=== PATIENT | male | born 1945 | race Caucasian/White ===

== ENCOUNTER 2021-07-03 23:35 | Inpatient (IN) ==
[2021-07-04] MEDS ORDERED: SODIUM CHLORIDE 0.9% 1,000 ML IV STA (00:17)
[2021-07-04 01:03] LABS: Basophils % 0.5 % (0.0-0.8); Eosinophils # 0.4 10*3/uL (0.0-0.87); Hemoglobin 12.7 GM/DL (14.0-18.0); Immature Granulocytes % 0.5 %; Immature Granulocytes Absolute 0.03 #; Lymphocytes # 1.1 10*3/uL (1.4-4.0); Lymphocytes % 17.4 % (21.2-54.2); Mean Corpuscular HGB Conc 31.8 GM/DL (32-36); Mean Platelet Volume 10.9 FL (9.6-12.0); Monocytes % 15.2 % (1.7-12.7); Neutrophils % 60.4 % (38.7-73.9); Platelet Count 178 T/CUMM (130-400); Red Blood Count 4.08 MC/CUMM (3.8-5.5); Red Cell Distribution Width 13.9 % (9.3-17.3); White Blood Count 6.3 T/CUMM (4-12)
[2021-07-04 01:19] LABS: PT Patient Result 10.9 SECS (10.5-12.0); Partial Thromboplastin Time 28.2 SECS (23.8-32.1)
[2021-07-04] MEDS ORDERED: ALBUTEROL/IPRATROPIUM 3 ML NEB RESP TX ONE (01:20)
[2021-07-04] MEDS ORDERED: LEVOFLOXACIN INJ 500 MG/100 ML PREMIX IV STA (01:20)
[2021-07-04] MEDS ORDERED: methylPREDNISolone SOD SUC 125 MG/2 ML VIAL IV STA (01:20)
[2021-07-04 01:23] LABS: Albumin 2.5 G/DL (3.4-5.0); Bilirubin,Total 0.7 MG/DL (0.20-1.00); Calcium 8.8 MG/DL (8.5-10.1); Osmolality,Calculated 283.5 MOS/KG (273-304); Potassium 4.6 MMOL/L (3.5-5.1); Total Protein 5.7 G/DL (6.4-8.2)
[2021-07-04] MEDS ORDERED: MAGNESIUM SULF RIDER 1 GM/100 ML PREMIX IV STA (01:32)
[2021-07-04] MEDS ORDERED: DEXTROSE 50% 25 GM/50 ML VIAL IV PRN (01:55)
[2021-07-04] MEDS ORDERED: ALBUTEROL 2.5 MG/3 ML NEB RESP TX PRN (01:55)
[2021-07-04] MEDS ORDERED: hydrALAZINE 20 MG/1 ML VIAL IV PRN (01:55)
[2021-07-04] MEDS ORDERED: DEXTROSE 10% 250 ML BAG IV PRN (01:55)
[2021-07-04] MEDS ORDERED: GLUCAGON 1 MG VIAL IM PRN (01:55)
[2021-07-04] MEDS ORDERED: guaiFENesin/DM ER 600-30 MG TABLET PO PRN (01:55)
[2021-07-04] MEDS ORDERED: ONDANSETRON 4 MG/2 ML VIAL IV PRN (01:55)
[2021-07-04 02:16] LABS: ABG Base Excess 4.1 MMOL/L (-2.5-2.5); ABG Oxygen Saturation 97.2 % (95-100); ABG PH 7.275 (7.35-7.45); ABG TCO2 30.1 MMOL/L (23-27)
[2021-07-04 02:18] LABS: ABG PCO2 72.5 MM HG (35-48)
[2021-07-04] MEDS ORDERED: MAGNESIUM SULF RIDER 2 GM/50 ML PREMIX IV PRN (02:28)
[2021-07-04] MEDS ORDERED: MAGNESIUM SULF RIDER 4 GM/100 ML PREMIX IV PRN (02:28)
[2021-07-04] MEDS: SODIUM CHLORIDE 0.9% 1,000 ML IV SCH ×3 (03:09→21:13)
[2021-07-04 04:03] LABS: Basophils % 0.4 % (0.0-0.8); Eosinophils # 0.2 10*3/uL (0.0-0.87); Eosinophils % 3.8 % (0.00-10.9); Hematocrit 38.8 VOL% (42.0-52.0); Immature Granulocytes % 0.6 %; Immature Granulocytes Absolute 0.03 #; Lymphocytes # 0.6 10*3/uL (1.4-4.0); Lymphocytes % 11.5 % (21.2-54.2); Mean Corpuscular HGB Conc 30.9 GM/DL (32-36); Mean Corpuscular Volume 98.2 FL (87-102); Monocytes % 9.5 % (1.7-12.7); Neutrophils % 74.2 % (38.7-73.9); Platelet Count 185 T/CUMM (130-400); Red Blood Count 3.95 MC/CUMM (3.8-5.5); Red Cell Distribution Width 13.8 % (9.3-17.3); White Blood Count 4.9 T/CUMM (4-12)
[2021-07-04 04:39] LABS: VLDL Cholesterol 19.2 MG/DL
[2021-07-04] MEDS: ALBUTEROL/IPRATROPIUM 3 ML NEB RESP TX SCH ×3 (07:11→19:03)
[2021-07-04] MEDS: INSULIN LISPRO 100 UNIT/ML SUBCUT SCH ×4 (07:22→21:12)
[2021-07-04] MEDS: DOCUSATE SODIUM 100 MG CAPSULE PO SCH ×2 (09:02→21:17)
[2021-07-04] MEDS: ENOXAPARIN 40 MG/0.4 ML SYRINGE SUBCUT SCH (09:02)
[2021-07-04] MEDS: NICOTINE 21 MG/24 HR PATCH TRANSDERM SCH (09:03)
[2021-07-04] MEDS: PANTOPRAZOLE 40 MG TABLET PO SCH (09:03)
[2021-07-04] MEDS: methylPREDNISolone SOD SUC 40 MG/1 ML VIAL IV SCH ×2 (09:03→17:30)
[2021-07-04] MEDS: BUDESONIDE/FORMOTEROL 160-4.5 INHALER 6 GM INH SCH (09:03)
[2021-07-05] MEDS: ALBUTEROL/IPRATROPIUM 3 ML NEB RESP TX SCH ×4 (01:49→19:05)
[2021-07-05] MEDS: methylPREDNISolone SOD SUC 40 MG/1 ML VIAL IV SCH ×3 (02:18→17:25)
[2021-07-05 05:33] LABS: Basophils % 0.1 % (0.0-0.8); Hematocrit 37.2 VOL% (42.0-52.0); Hemoglobin 12.1 GM/DL (14.0-18.0); Immature Granulocytes % 0.6 %; Immature Granulocytes Absolute 0.05 #; Lymphocytes # 0.4 10*3/uL (1.4-4.0); Lymphocytes % 4.8 % (21.2-54.2); Mean Corpuscular HGB Conc 32.5 GM/DL (32-36); Mean Corpuscular Volume 95.4 FL (87-102); Mean Platelet Volume 11.2 FL (9.6-12.0); Monocytes % 5.5 % (1.7-12.7); Platelet Count 192 T/CUMM (130-400); Red Cell Distribution Width 13.4 % (9.3-17.3); White Blood Count 8.4 T/CUMM (4-12)
[2021-07-05] MEDS: SODIUM CHLORIDE 0.9% 1,000 ML IV SCH ×2 (05:47→17:25)
[2021-07-05 05:58] LABS: Calcium 9.1 MG/DL (8.5-10.1); Osmolality,Calculated 288.4 MOS/KG (273-304); Potassium 5.2 MMOL/L (3.5-5.1)
[2021-07-05 06:15] LABS: Lymphocytes 3 % (20-55); Platelet Estimate Normal; Segmented Neutrophils 92 % (50-85); Total Cells Counted 100
[2021-07-05] MEDS: BUDESONIDE/FORMOTEROL 160-4.5 INHALER 6 GM INH SCH ×3 (06:27→22:30)
[2021-07-05] MEDS ORDERED: SODIUM POLYSTYRENE SULFATE 15 GM/60 ML BOTTLE PO ONE (09:00)
[2021-07-05] MEDS: ENOXAPARIN 40 MG/0.4 ML SYRINGE SUBCUT SCH (09:29)
[2021-07-05] MEDS: DOCUSATE SODIUM 100 MG CAPSULE PO SCH ×2 (09:29→22:17)
[2021-07-05] MEDS: FUROSEMIDE 40 MG TABLET PO SCH (09:29)
[2021-07-05] MEDS: LEVOFLOXACIN INJ 500 MG/100 ML PREMIX IV SCH (09:29)
[2021-07-05] MEDS: allopurinoL 300 MG TABLET PO SCH (09:29)
[2021-07-05] MEDS: NICOTINE 21 MG/24 HR PATCH TRANSDERM SCH (09:29)
[2021-07-05] MEDS: glipiZIDE 5 MG TABLET PO SCH (09:29)
[2021-07-05] MEDS: PANTOPRAZOLE 40 MG TABLET PO SCH (09:29)
[2021-07-05] MEDS: INSULIN LISPRO 100 UNIT/ML SUBCUT SCH ×4 (09:29→22:17)
[2021-07-05] MEDS: GABAPENTIN 400 MG CAPSULE PO SCH ×3 (12:15→22:17)
[2021-07-06] MEDS: ALBUTEROL/IPRATROPIUM 3 ML NEB RESP TX SCH ×2 (01:06→07:12)
[2021-07-06] MEDS: SODIUM CHLORIDE 0.9% 1,000 ML IV SCH ×3 (01:56→09:35)
[2021-07-06] MEDS: methylPREDNISolone SOD SUC 40 MG/1 ML VIAL IV SCH ×2 (02:43→09:35)
[2021-07-06 06:28] LABS: Basophils % 0.2 % (0.0-0.8); Hematocrit 39.3 VOL% (42.0-52.0); Immature Granulocytes % 1.5 %; Immature Granulocytes Absolute 0.15 #; Lymphocytes # 0.4 10*3/uL (1.4-4.0); Lymphocytes % 4.1 % (21.2-54.2); Mean Corpuscular HGB Conc 30.5 GM/DL (32-36); Mean Corpuscular Volume 99.5 FL (87-102); Mean Platelet Volume 10.8 FL (9.6-12.0); Monocytes % 9.9 % (1.7-12.7); Neutrophils % 84.3 % (38.7-73.9); Platelet Count 210 T/CUMM (130-400); Red Blood Count 3.95 MC/CUMM (3.8-5.5); Red Cell Distribution Width 14.2 % (9.3-17.3); White Blood Count 9.8 T/CUMM (4-12)
[2021-07-06 06:41] LABS: Calcium 8.7 MG/DL (8.5-10.1); Osmolality,Calculated 294.7 MOS/KG (273-304); Potassium 3.7 MMOL/L (3.5-5.1)
[2021-07-06 07:35] LABS: Hypochromia 1+; Lymphocytes 4 % (20-55); Segmented Neutrophils 87 % (50-85); Total Cells Counted 100
[2021-07-06 07:36] LABS: Microcytosis 1+; Platelet Estimate Normal
[2021-07-06] MEDS: DOCUSATE SODIUM 100 MG CAPSULE PO SCH (09:35)
[2021-07-06] MEDS: PANTOPRAZOLE 40 MG TABLET PO SCH (09:35)
[2021-07-06] MEDS: glipiZIDE 5 MG TABLET PO SCH (09:35)
[2021-07-06] MEDS: LEVOFLOXACIN INJ 500 MG/100 ML PREMIX IV SCH (09:35)
[2021-07-06] MEDS: NICOTINE 21 MG/24 HR PATCH TRANSDERM SCH (09:35)
[2021-07-06] MEDS: BUDESONIDE/FORMOTEROL 160-4.5 INHALER 6 GM INH SCH (09:35)
[2021-07-06] MEDS: INSULIN LISPRO 100 UNIT/ML SUBCUT SCH ×2 (09:35→12:20)
[2021-07-06] MEDS: allopurinoL 300 MG TABLET PO SCH (09:35)
[2021-07-06] MEDS: ENOXAPARIN 40 MG/0.4 ML SYRINGE SUBCUT SCH (09:35)
[2021-07-06] MEDS: GABAPENTIN 400 MG CAPSULE PO SCH (09:35)
[2021-07-06] MEDS: FUROSEMIDE 40 MG TABLET PO SCH (09:35)
[2021-07-06 11:38] VITALS: BP 140/70
== END 2021-07-06 14:18 | disposition home or self-care (01) | DRG 190 ==
LOC: N.ED 23:35 → N.EDINP 07-04 02:04 → N.5E 07-04 14:09
PROVIDERS: ADMIT Hospitalist; ATTEND Hospitalist

== ENCOUNTER 2021-09-13 08:47 | Inpatient (IN) ==
[2021-09-13] MEDS ORDERED: methylPREDNISolone SOD SUC 125 MG/2 ML VIAL IV STA (09:15)
[2021-09-13] MEDS ORDERED: ASPIRIN 325 MG TABLET PO STA (09:15)
[2021-09-13] MEDS ORDERED: SODIUM CHLORIDE 0.9% 500 ML IV STA ×2 (09:28→10:21)
[2021-09-13 09:29] LABS: Basophils # 0.1 10*3/uL (0.0-0.2); Basophils % 0.9 % (0.0-0.8); Eosinophils # 0.1 10*3/uL (0.0-0.87); Hematocrit 47.4 VOL% (42.0-52.0); Hemoglobin 13.8 GM/DL (14.0-18.0); Immature Granulocytes % 0.4 %; Immature Granulocytes Absolute 0.04 #; Lymphocytes # 0.8 10*3/uL (1.4-4.0); Lymphocytes % 8.5 % (21.2-54.2); Mean Corpuscular HGB Conc 29.1 GM/DL (32-36); Mean Corpuscular Volume 104.2 FL (87-102); Mean Platelet Volume 11.1 FL (9.6-12.0); Monocytes # 0.7 10*3/uL (0.11-0.8); Monocytes % 7.8 % (1.7-12.7); Neutrophils % 81.4 % (38.7-73.9); Platelet Count 242 T/CUMM (130-400); Red Blood Count 4.55 MC/CUMM (3.8-5.5); Red Cell Distribution Width 15.1 % (9.3-17.3); White Blood Count 9.1 T/CUMM (4-12)
[2021-09-13] MEDS ORDERED: ALBUTEROL NEB SOLN 5 MG/ML 20 ML/BOTTLE CONT NEB SCH (09:30)
[2021-09-13 09:46] LABS: Arterial Base Excess iSTAT 0 MMOL/L (-2.5-2.5); Arterial Bicarbonate iSTAT 30.1 MMOL/L (20-26); Arterial O2 Saturation iSTAT 93 % (95-100); Arterial PCO2 iSTAT 75 MM HG (35-48); Arterial PO2 iSTAT 82 MM HG (80-95); Arterial Total CO2 iSTAT 32 MMO/L (23-27); Arterial pH iSTAT 7.212 (7.35-7.45)
[2021-09-13 09:52] LABS: Albumin 3.3 G/DL (3.4-5.0); Bilirubin,Total 0.8 MG/DL (0.20-1.00); Calcium 8.6 MG/DL (8.5-10.1); Osmolality,Calculated 293.1 MOS/KG (273-304); Potassium 5.8 MMOL/L (3.5-5.1); Total Protein 6.4 G/DL (6.4-8.2)
[2021-09-13] MEDS ORDERED: AZITHROMYCIN INJ 500 MG in SODIUM CHLORIDE 0.9% 250 ML IV STA (10:16)
[2021-09-13] MEDS ORDERED: cefTRIAXone 1,000 MG in SODIUM CHLORIDE 0.9% 100 ML IV STA (10:16)
[2021-09-13] MEDS ORDERED: GLUCAGON 1 MG VIAL IM PRN (10:53)
[2021-09-13] MEDS ORDERED: DEXTROSE 10% 250 ML BAG IV PRN (11:03)
[2021-09-13] MEDS ORDERED: DIAZEPAM 5 MG TABLET PO STA (11:04)
[2021-09-13] MEDS ORDERED: ONDANSETRON ODT 4 MG TABLET PO PRN (11:22)
[2021-09-13] MEDS ORDERED: AZITHROMYCIN INJ 500 MG in SODIUM CHLORIDE 0.9% 250 ML IV SCH (11:30)
[2021-09-13] MEDS ORDERED: oxyCODONE/ACETAMINOPHEN 5-325 MG TABLET PO PRN (11:36)
[2021-09-13] MEDS: ENOXAPARIN 40 MG/0.4 ML SYRINGE SUBCUT SCH (11:57)
[2021-09-13] MEDS: ALBUTEROL/IPRATROPIUM 3 ML NEB RESP TX SCH ×2 (12:50→19:26)
[2021-09-13 13:14] LABS: Arterial Base Excess iSTAT -2 MMOL/L (-2.5-2.5); Arterial Bicarbonate iSTAT 27.3 MMOL/L (20-26); Arterial O2 Saturation iSTAT 76 % (95-100); Arterial PCO2 iSTAT 67 MM HG (35-48); Arterial PO2 iSTAT 51 MM HG (80-95); Arterial Total CO2 iSTAT 29 MMO/L (23-27); Arterial pH iSTAT 7.216 (7.35-7.45)
[2021-09-13] MEDS ORDERED: GABAPENTIN 400 MG CAPSULE PO SCH (15:00)
[2021-09-13] MEDS ORDERED: MORPHINE 2 MG/1 ML SYRINGE ONE (15:15)
[2021-09-13] MEDS ORDERED: DIGOXIN 0.5 MG/2 ML AMP IV ONE ×2 (15:19→16:00)
[2021-09-13] MEDS ORDERED: DILTIAZEM 50 MG/10 ML VIAL IV ONE (15:29)
[2021-09-13 15:48] LABS: Basophils % 0.4 % (0.0-0.8); Hematocrit 48.8 VOL% (42.0-52.0); Hemoglobin 14.7 GM/DL (14.0-18.0); Immature Granulocytes % 0.8 %; Immature Granulocytes Absolute 0.07 #; Lymphocytes # 0.4 10*3/uL (1.4-4.0); Lymphocytes % 3.8 % (21.2-54.2); Mean Corpuscular HGB Conc 30.1 GM/DL (32-36); Mean Corpuscular Volume 102.5 FL (87-102); Mean Platelet Volume 11.3 FL (9.6-12.0); Monocytes # 0.1 10*3/uL (0.11-0.8); Monocytes % 1.1 % (1.7-12.7); Neutrophils % 93.9 % (38.7-73.9); Platelet Count 205 T/CUMM (130-400); Red Blood Count 4.76 MC/CUMM (3.8-5.5); Red Cell Distribution Width 15.1 % (9.3-17.3); White Blood Count 9.2 T/CUMM (4-12)
[2021-09-13 15:49] LABS: Albumin 3.2 G/DL (3.4-5.0); Bilirubin,Total 0.6 MG/DL (0.20-1.00); Calcium 8.6 MG/DL (8.5-10.1); Osmolality,Calculated 279.1 MOS/KG (273-304); Total Protein 7.1 G/DL (6.4-8.2)
[2021-09-13 15:55] LABS: Potassium 6.2 MMOL/L (3.5-5.1)
[2021-09-13] MEDS ORDERED: DILTIAZEM INJ 100 MG in SODIUM CHLORIDE 0.9% 100 ML IV SCH (15:56)
[2021-09-13] MEDS ORDERED: SODIUM POLYSTYRENE SULFATE 15 GM/60 ML BOTTLE PO ONE (15:56)
[2021-09-13] MEDS ORDERED: FUROSEMIDE 40 MG TABLET PO SCH (16:00)
[2021-09-13] MEDS ORDERED: MORPHINE 2 MG/1 ML SYRINGE IV ONE ×2 (16:00→16:30)
[2021-09-13] MEDS: DILTIAZEM INJ 100 MG in SODIUM CHLORIDE 0.9% 100 ML IV SCH (16:14)
[2021-09-13 16:16] LABS: Anisocytosis Slight; Hypochromia Slight; Lymphocytes 1 % (20-55); Macrocytosis Slight; Platelet Estimate Normal; Polychromasia Slight; Target Cells Slight; Total Cells Counted 100
[2021-09-13] MEDS ORDERED: SODIUM CHLORIDE 0.9% 500 ML IV ONE ×2 (16:16→17:00)
[2021-09-13 16:17] LABS: Dohle Bodies 1+; Toxic Granulation 1+
[2021-09-13 16:52] LABS: Arterial Base Excess iSTAT -4 MMOL/L (-2.5-2.5); Arterial O2 Saturation iSTAT 97 % (95-100); Arterial PCO2 iSTAT 79 MM HG (35-48); Arterial PO2 iSTAT 128 MM HG (80-95); Arterial Total CO2 iSTAT 29 MMO/L (23-27); Arterial pH iSTAT 7.142 (7.35-7.45)
[2021-09-13] MEDS: NICOTINE 14 MG/24 HR PATCH TRANSDERM SCH (18:01)
[2021-09-13] MEDS ORDERED: PNEUMOCOCCAL VACCINE (13 VALENT) 0.5 ML SYRINGE IM ONE (18:33)
[2021-09-13] MEDS: GABAPENTIN 400 MG CAPSULE PO SCH (20:42)
[2021-09-13] MEDS: methylPREDNISolone SOD SUC 40 MG/1 ML VIAL IV SCH (20:43)
[2021-09-13 21:26] LABS: ABG Base Excess -4.5 MMOL/L (-2.5-2.5); ABG HCO3 20.6 MMOL/L (20-26); ABG Oxygen Saturation 93.6 % (95-100); ABG PCO2 63.2 MM HG (35-48); ABG PO2 77.4 MM HG (80-95); ABG TCO2 22.6 MMOL/L (23-27)
[2021-09-13 21:28] LABS: ABG PH 7.208 (7.35-7.45)
[2021-09-14] MEDS: ALBUTEROL/IPRATROPIUM 3 ML NEB RESP TX SCH ×4 (00:01→19:03)
[2021-09-14] MEDS: INSULIN LISPRO 100 UNIT/ML SUBCUT SCH ×4 (00:44→17:20)
[2021-09-14 03:44] LABS: Basophils % 0.1 % (0.0-0.8); Hematocrit 43.9 VOL% (42.0-52.0); Hemoglobin 13.3 GM/DL (14.0-18.0); Immature Granulocytes % 0.5 %; Immature Granulocytes Absolute 0.04 #; Lymphocytes # 0.4 10*3/uL (1.4-4.0); Lymphocytes % 4.9 % (21.2-54.2); Mean Corpuscular HGB Conc 30.3 GM/DL (32-36); Mean Corpuscular Volume 101.2 FL (87-102); Mean Platelet Volume 11.1 FL (9.6-12.0); Monocytes # 0.2 10*3/uL (0.11-0.8); Neutrophils % 92.5 % (38.7-73.9); Platelet Count 203 T/CUMM (130-400); Red Blood Count 4.34 MC/CUMM (3.8-5.5); Red Cell Distribution Width 14.7 % (9.3-17.3); White Blood Count 7.4 T/CUMM (4-12)
[2021-09-14 04:02] LABS: Arterial Base Excess iSTAT -1 MMOL/L (-2.5-2.5); Arterial Bicarbonate iSTAT 25.9 MMOL/L (20-26); Arterial O2 Saturation iSTAT 96 % (95-100); Arterial PCO2 iSTAT 51 MM HG (35-48); Arterial PO2 iSTAT 88 MM HG (80-95); Arterial Total CO2 iSTAT 27 MMO/L (23-27); Arterial pH iSTAT 7.315 (7.35-7.45)
[2021-09-14 04:04] LABS: Albumin 2.9 G/DL (3.4-5.0); Bilirubin,Total 0.7 MG/DL (0.20-1.00); Calcium 8.6 MG/DL (8.5-10.1); Osmolality,Calculated 285.7 MOS/KG (273-304); Potassium 5.8 MMOL/L (3.5-5.1); Total Protein 6.3 G/DL (6.4-8.2)
[2021-09-14 04:06] LABS: Lymphocytes 12 % (20-55); Platelet Estimate Adequate; Total Cells Counted 100
[2021-09-14] MEDS: methylPREDNISolone SOD SUC 40 MG/1 ML VIAL IV SCH ×2 (10:00→21:07)
[2021-09-14] MEDS: cefTRIAXone 1,000 MG in SODIUM CHLORIDE 0.9% 100 ML IV SCH (10:00)
[2021-09-14] MEDS: MAGNESIUM OXIDE 400 MG TABLET PO SCH (10:00)
[2021-09-14] MEDS: allopurinoL 300 MG TABLET PO SCH (10:00)
[2021-09-14] MEDS: GABAPENTIN 400 MG CAPSULE PO SCH ×2 (10:00→21:07)
[2021-09-14] MEDS: DIGOXIN 0.25 MG TABLET PO SCH (10:03)
[2021-09-14] MEDS: NICOTINE 14 MG/24 HR PATCH TRANSDERM SCH (10:03)
[2021-09-14] MEDS: ENOXAPARIN 40 MG/0.4 ML SYRINGE SUBCUT SCH (11:16)
[2021-09-14] MEDS: DILTIAZEM INJ 100 MG in SODIUM CHLORIDE 0.9% 100 ML IV SCH (17:16)
[2021-09-14] MEDS: FAMOTIDINE 20 MG TABLET PO PRN (19:32)
[2021-09-15] MEDS: INSULIN LISPRO 100 UNIT/ML SUBCUT SCH ×4 (00:19→18:33)
[2021-09-15 04:18] LABS: Arterial Base Excess iSTAT 2 MMOL/L (-2.5-2.5); Arterial Bicarbonate iSTAT 30.2 MMOL/L (20-26); Arterial O2 Saturation iSTAT 96 % (95-100); Arterial PCO2 iSTAT 61 MM HG (35-48); Arterial PO2 iSTAT 91 MM HG (80-95); Arterial Total CO2 iSTAT 32 MMO/L (23-27); Arterial pH iSTAT 7.302 (7.35-7.45)
[2021-09-15 06:11] LABS: Basophils % 0.1 % (0.0-0.8); Hematocrit 40.3 VOL% (42.0-52.0); Hemoglobin 12.2 GM/DL (14.0-18.0); Immature Granulocytes % 0.6 %; Immature Granulocytes Absolute 0.08 #; Lymphocytes # 0.3 10*3/uL (1.4-4.0); Lymphocytes % 2.1 % (21.2-54.2); Mean Corpuscular HGB Conc 30.3 GM/DL (32-36); Mean Corpuscular Volume 101.3 FL (87-102); Mean Platelet Volume 11.7 FL (9.6-12.0); Monocytes # 0.2 10*3/uL (0.11-0.8); Monocytes % 1.5 % (1.7-12.7); Neutrophils % 95.7 % (38.7-73.9); Platelet Count 213 T/CUMM (130-400); Red Blood Count 3.98 MC/CUMM (3.8-5.5); Red Cell Distribution Width 14.6 % (9.3-17.3)
[2021-09-15 06:17] LABS: White Blood Count 13.8 T/CUMM (4-12)
[2021-09-15 06:40] LABS: Lymphocytes 5 % (20-55); Macrocytosis Slight; Total Cells Counted 100
[2021-09-15 06:41] LABS: Calcium 8.3 MG/DL (8.5-10.1); Osmolality,Calculated 297.5 MOS/KG (273-304); Platelet Estimate Normal
[2021-09-15] MEDS: ALBUTEROL/IPRATROPIUM 3 ML NEB RESP TX SCH ×4 (07:07→18:50)
[2021-09-15] MEDS ORDERED: SODIUM POLYSTYRENE SULFATE 15 GM/60 ML BOTTLE PO ONE (08:30)
[2021-09-15] MEDS: methylPREDNISolone SOD SUC 40 MG/1 ML VIAL IV SCH ×2 (10:27→21:37)
[2021-09-15] MEDS: allopurinoL 300 MG TABLET PO SCH (10:31)
[2021-09-15] MEDS: DIGOXIN 0.25 MG TABLET PO SCH (10:31)
[2021-09-15] MEDS: GABAPENTIN 400 MG CAPSULE PO SCH ×2 (10:32→21:36)
[2021-09-15] MEDS: MAGNESIUM OXIDE 400 MG TABLET PO SCH (10:32)
[2021-09-15] MEDS: AZITHROMYCIN 250 MG TABLET PO SCH (10:32)
[2021-09-15] MEDS: NICOTINE 14 MG/24 HR PATCH TRANSDERM SCH (10:32)
[2021-09-15] MEDS: cefTRIAXone 1,000 MG in SODIUM CHLORIDE 0.9% 100 ML IV SCH (10:39)
[2021-09-15] MEDS: SODIUM CHLORIDE 0.45% 1,000 ML IV SCH (12:35)
[2021-09-15] MEDS: ENOXAPARIN 40 MG/0.4 ML SYRINGE SUBCUT SCH (12:46)
[2021-09-15] MEDS: SODIUM ZIRCONIUM CYCLOSILICATE 10 GM PACK PO SCH ×2 (15:34→21:37)
[2021-09-15] MEDS: FAMOTIDINE 20 MG TABLET PO PRN (21:36)
[2021-09-16] MEDS: INSULIN LISPRO 100 UNIT/ML SUBCUT SCH ×5 (00:51→23:54)
[2021-09-16] MEDS: SODIUM CHLORIDE 0.45% 1,000 ML IV SCH ×2 (01:55→16:30)
[2021-09-16 06:33] LABS: Basophils % 0.1 % (0.0-0.8); Hematocrit 41.6 VOL% (42.0-52.0); Hemoglobin 12.7 GM/DL (14.0-18.0); Immature Granulocytes % 1.4 %; Immature Granulocytes Absolute 0.16 #; Lymphocytes # 0.1 10*3/uL (1.4-4.0); Lymphocytes % 1.3 % (21.2-54.2); Mean Corpuscular HGB Conc 30.5 GM/DL (32-36); Mean Corpuscular Volume 99.8 FL (87-102); Mean Platelet Volume 10.9 FL (9.6-12.0); Monocytes # 0.2 10*3/uL (0.11-0.8); Monocytes % 1.4 % (1.7-12.7); Neutrophils % 95.8 % (38.7-73.9); Platelet Count 209 T/CUMM (130-400); Red Blood Count 4.17 MC/CUMM (3.8-5.5); Red Cell Distribution Width 14.9 % (9.3-17.3); White Blood Count 11.1 T/CUMM (4-12)
[2021-09-16 06:57] LABS: Lymphocytes 1 % (20-55); Platelet Estimate Adequate; Total Cells Counted 100
[2021-09-16 06:58] LABS: Hypochromia Slight; Microcytosis Slight; Ovalocytes Slight
[2021-09-16 07:01] LABS: Calcium 8.1 MG/DL (8.5-10.1); Potassium 4.1 MMOL/L (3.5-5.1)
[2021-09-16] MEDS: ALBUTEROL/IPRATROPIUM 3 ML NEB RESP TX SCH ×4 (07:15→19:15)
[2021-09-16] MEDS: NICOTINE 14 MG/24 HR PATCH TRANSDERM SCH (08:08)
[2021-09-16] MEDS: GABAPENTIN 400 MG CAPSULE PO SCH ×2 (08:09→20:57)
[2021-09-16] MEDS: MAGNESIUM OXIDE 400 MG TABLET PO SCH (08:09)
[2021-09-16] MEDS: ONDANSETRON 4 MG/2 ML VIAL IV PRN (08:09)
[2021-09-16] MEDS: AZITHROMYCIN 250 MG TABLET PO SCH (08:09)
[2021-09-16] MEDS: METOPROLOL SUCCINATE XL 25 MG TABLET PO SCH (08:09)
[2021-09-16] MEDS: allopurinoL 300 MG TABLET PO SCH (08:09)
[2021-09-16] MEDS ORDERED: DIGOXIN 0.125 MG TABLET PO SCH (09:00)
[2021-09-16] MEDS: methylPREDNISolone SOD SUC 40 MG/1 ML VIAL IV SCH ×2 (09:40→20:57)
[2021-09-16] MEDS ORDERED: MAGNESIUM CITRATE 300 ML BOTTLE PO ONE (10:50)
[2021-09-16] MEDS: ENOXAPARIN 40 MG/0.4 ML SYRINGE SUBCUT SCH (12:16)
[2021-09-16] MEDS: cefTRIAXone 1,000 MG in SODIUM CHLORIDE 0.9% 100 ML IV SCH (12:16)
[2021-09-17] MEDS: ALBUTEROL/IPRATROPIUM 3 ML NEB RESP TX SCH ×4 (00:51→19:12)
[2021-09-17] MEDS: SODIUM CHLORIDE 0.45% 1,000 ML IV SCH ×2 (02:11→20:01)
[2021-09-17 06:02] LABS: Calcium 8.4 MG/DL (8.5-10.1); Osmolality,Calculated 297.4 MOS/KG (273-304); Potassium 5.8 MMOL/L (3.5-5.1)
[2021-09-17 06:03] LABS: Calcium 8.3 MG/DL (8.5-10.1); Osmolality,Calculated 301.3 MOS/KG (273-304); Potassium 5.8 MMOL/L (3.5-5.1)
[2021-09-17 06:14] LABS: Total Protein 6.4 G/DL (6.4-8.2)
[2021-09-17 06:16] LABS: Basophils % 0.2 % (0.0-0.8); Hemoglobin 13.2 GM/DL (14.0-18.0); Immature Granulocytes % 3.2 %; Immature Granulocytes Absolute 0.37 #; Lymphocytes # 0.3 10*3/uL (1.4-4.0); Lymphocytes % 2.5 % (21.2-54.2); Mean Corpuscular HGB Conc 29.8 GM/DL (32-36); Mean Corpuscular Volume 103.5 FL (87-102); Mean Platelet Volume 11.2 FL (9.6-12.0); Monocytes # 0.4 10*3/uL (0.11-0.8); Monocytes % 3.1 % (1.7-12.7); Platelet Count 211 T/CUMM (130-400); Red Blood Count 4.28 MC/CUMM (3.8-5.5); Red Cell Distribution Width 15.3 % (9.3-17.3); White Blood Count 11.7 T/CUMM (4-12)
[2021-09-17 06:17] LABS: Hematocrit 44.3 VOL% (42.0-52.0)
[2021-09-17 06:21] LABS: Hypochromia Slight; Lymphocytes 4 % (20-55); Microcytosis Slight; Total Cells Counted 100
[2021-09-17 06:22] LABS: Platelet Estimate Normal
[2021-09-17] MEDS: INSULIN LISPRO 100 UNIT/ML SUBCUT SCH ×3 (06:23→18:08)
[2021-09-17 06:53] LABS: Immunoglobulin A (Chem) 312 MG/DL (70-400); Immunoglobulin G (Chem) 718 MG/DL (700-1600); Immunoglobulin M (Chem) 41 MG/DL (40-230); Total Protein (Chem) 6.4 G/DL (6.4-8.3)
[2021-09-17] MEDS ORDERED: SODIUM ZIRCONIUM CYCLOSILICATE 10 GM PACK PO SCH (09:00)
[2021-09-17] MEDS: SODIUM ZIRCONIUM CYCLOSILICATE 10 GM PACK PO SCH (09:00)
[2021-09-17] MEDS: METOPROLOL SUCCINATE XL 25 MG TABLET PO SCH (09:02)
[2021-09-17] MEDS: GABAPENTIN 400 MG CAPSULE PO SCH ×2 (09:02→20:54)
[2021-09-17] MEDS: allopurinoL 300 MG TABLET PO SCH (09:02)
[2021-09-17] MEDS: AZITHROMYCIN 250 MG TABLET PO SCH (09:02)
[2021-09-17] MEDS: NICOTINE 14 MG/24 HR PATCH TRANSDERM SCH (09:08)
[2021-09-17] MEDS: methylPREDNISolone SOD SUC 40 MG/1 ML VIAL IV SCH ×2 (09:08→20:54)
[2021-09-17] MEDS: cefTRIAXone 1,000 MG in SODIUM CHLORIDE 0.9% 100 ML IV SCH (09:08)
[2021-09-17 10:10] LABS: Albumin (SPE) 4.2 G/DL (3.2-5.3); Albumin (SPE) Rel % 65.6 %; Alpha 1 (SPE) 0.2 G/DL (0.1-0.4); Alpha 1 (SPE) Rel % 2.7 %; Alpha 2 (SPE) 0.7 G/DL (0.4-1.0); Alpha 2 (SPE) Rel % 10.6 %; Beta (SPE) 0.7 G/DL (0.5-1.1); Beta (SPE) Rel % 10.6 %; Gamma (SPE) 0.7 G/DL (0.7-1.7); Gamma (SPE) Rel % 10.5 %
[2021-09-17] MEDS: ENOXAPARIN 40 MG/0.4 ML SYRINGE SUBCUT SCH (12:18)
[2021-09-17] MEDS: ONDANSETRON 4 MG/2 ML VIAL IV PRN (13:02)
[2021-09-17] MEDS: ACETAMINOPHEN 325 MG TABLET PO PRN (13:02)
[2021-09-17] MEDS ORDERED: ALUM/MAG/SIMETH/LIDO VISC 1:1 30 ML BOTTLE PO ONE (17:49)
[2021-09-17] MEDS: FAMOTIDINE 20 MG TABLET PO PRN (18:07)
[2021-09-18] MEDS: INSULIN LISPRO 100 UNIT/ML SUBCUT SCH ×5 (00:12→23:17)
[2021-09-18] MEDS: SODIUM CHLORIDE 0.45% 1,000 ML IV SCH ×2 (03:35→18:19)
[2021-09-18 05:49] LABS: Calcium 8.5 MG/DL (8.5-10.1); Osmolality,Calculated 301.5 MOS/KG (273-304); Potassium 5.3 MMOL/L (3.5-5.1)
[2021-09-18] MEDS: ALBUTEROL/IPRATROPIUM 3 ML NEB RESP TX SCH ×4 (07:23→19:35)
[2021-09-18] MEDS: SODIUM ZIRCONIUM CYCLOSILICATE 10 GM PACK PO SCH (08:36)
[2021-09-18] MEDS: METOPROLOL SUCCINATE XL 25 MG TABLET PO SCH (08:36)
[2021-09-18] MEDS: GABAPENTIN 400 MG CAPSULE PO SCH ×2 (08:36→23:35)
[2021-09-18] MEDS: AZITHROMYCIN 250 MG TABLET PO SCH (08:36)
[2021-09-18] MEDS: allopurinoL 300 MG TABLET PO SCH (08:36)
[2021-09-18] MEDS: NICOTINE 14 MG/24 HR PATCH TRANSDERM SCH (08:36)
[2021-09-18] MEDS: methylPREDNISolone SOD SUC 40 MG/1 ML VIAL IV SCH ×2 (08:40→23:35)
[2021-09-18] MEDS: cefTRIAXone 1,000 MG in SODIUM CHLORIDE 0.9% 100 ML IV SCH (09:04)
[2021-09-18 10:07] LABS: Albumin (UPER) Rel% 72.2 %; Alpha 1 (UPER) 5.5 MG/DL; Alpha 1 (UPER) Rel% 7.6 %; Alpha 2 (UPER) 2.2 MG/DL; Alpha 2 (UPER) Rel % 3.1 %; Beta (UPER) 3.7 MG/DL; Beta (UPER) Rel % 5.1 %; Gamma (UPER) 8.6 MG/DL
[2021-09-18] MEDS: ENOXAPARIN 40 MG/0.4 ML SYRINGE SUBCUT SCH (12:13)
[2021-09-18 14:24] LABS: Kappa Free Light Chain 2.15 mg/dL; Lambda Free Light Chain 1.71 mg/dL
[2021-09-18] MEDS ORDERED: NALOXONE 0.4 MG/ML VIAL ONE (17:50)
[2021-09-18] MEDS ORDERED: NALOXONE 0.4 MG/ML VIAL IV ONE (17:53)
[2021-09-18] MEDS ORDERED: METOPROLOL TARTRATE 5 MG/5 ML VIAL IV PRN (18:04)
[2021-09-18 22:16] LABS: Arterial Base Excess iSTAT 0 MMOL/L (-2.5-2.5); Arterial Bicarbonate iSTAT 34.1 MMOL/L (20-26); Arterial O2 Saturation iSTAT 91 % (95-100); Arterial PCO2 iSTAT 114 MM HG (35-48); Arterial PO2 iSTAT 89 MM HG (80-95); Arterial Total CO2 iSTAT 38 MMO/L (23-27); Arterial pH iSTAT 7.084 (7.35-7.45)
[2021-09-18 22:59] LABS: Calcium 8.5 MG/DL (8.5-10.1); Osmolality,Calculated 301.4 MOS/KG (273-304); Potassium 5.7 MMOL/L (3.5-5.1)
[2021-09-18] MEDS ORDERED: INSULIN REGULAR 10 UNIT, CALCIUM GLUCONATE 1,000 MG in DEXTROSE 10% 250 ML IV ONE (23:30)
[2021-09-18 23:35] LABS: ABG Base Excess -1.9 MMOL/L (-2.5-2.5); ABG HCO3 22.7 MMOL/L (20-26); ABG Oxygen Saturation 93.1 % (95-100); ABG PO2 74.3 MM HG (80-95); ABG TCO2 29.6 MMOL/L (23-27)
[2021-09-18 23:37] LABS: ABG PCO2 99.9 MM HG (35-48); ABG PH 7.112 (7.35-7.45)
[2021-09-19] MEDS: ALBUTEROL/IPRATROPIUM 3 ML NEB RESP TX SCH ×4 (00:40→20:05)
[2021-09-19 00:58] LABS: ABG Base Excess -2.2 MMOL/L (-2.5-2.5); ABG HCO3 22.5 MMOL/L (20-26); ABG Oxygen Saturation 97.4 % (95-100); ABG TCO2 28.6 MMOL/L (23-27)
[2021-09-19 01:00] LABS: ABG PCO2 94.6 MM HG (35-48); ABG PH 7.122 (7.35-7.45)
[2021-09-19 04:18] LABS: ABG Base Excess -1.3 MMOL/L (-2.5-2.5); ABG HCO3 23.3 MMOL/L (20-26); ABG Oxygen Saturation 96.9 % (95-100); ABG TCO2 28.7 MMOL/L (23-27)
[2021-09-19 04:21] LABS: ABG PCO2 89.7 MM HG (35-48); ABG PH 7.146 (7.35-7.45)
[2021-09-19] MEDS ORDERED: NOREPINEPHRINE 8 MG in SODIUM CHLORIDE 0.9% 242 ML IV PRN (04:44)
[2021-09-19] MEDS ORDERED: NOREPINEPHRINE 4 MG/4 ML VIAL IV ONE (04:45)
[2021-09-19] MEDS ORDERED: EPINEPHrine 1 MG/10 ML SYRINGE ONE (04:45)
[2021-09-19] MEDS ORDERED: DOPamine 800 MG/250 ML PREMIX IV ONE (04:46)
[2021-09-19] MEDS ORDERED: VECURONIUM 10 MG VIAL IV ONE ×2 (04:46→05:15)
[2021-09-19] MEDS ORDERED: ETOMIDATE 20 MG/10 ML VIAL IV ONE ×2 (04:46→05:30)
[2021-09-19] MEDS ORDERED: DOPamine 800 MG/250 ML PREMIX IV PRN (04:52)
[2021-09-19] MEDS ORDERED: SODIUM CHLORIDE 0.9% 500 ML IV ONE (05:00)
[2021-09-19 05:10] LABS: Basophils # 0.1 10*3/uL (0.0-0.2); Basophils % 0.5 % (0.0-0.8); Hemoglobin 13.5 GM/DL (14.0-18.0); Immature Granulocytes % 2.5 %; Immature Granulocytes Absolute 0.36 #; Lymphocytes # 0.6 10*3/uL (1.4-4.0); Lymphocytes % 3.9 % (21.2-54.2); Mean Corpuscular HGB Conc 29.1 GM/DL (32-36); Mean Corpuscular Volume 105.5 FL (87-102); Mean Platelet Volume 12.1 FL (9.6-12.0); Monocytes # 1.6 10*3/uL (0.11-0.8); Monocytes % 11.3 % (1.7-12.7); NRBC # 0.03 10*3/uL; Neutrophils % 81.8 % (38.7-73.9); Platelet Count 117 T/CUMM (130-400); Red Cell Distribution Width 14.9 % (9.3-17.3); White Blood Count 14.2 T/CUMM (4-12)
[2021-09-19 05:13] LABS: Hematocrit 46.4 VOL% (42.0-52.0)
[2021-09-19 05:26] LABS: Lymphocytes 6 % (20-55); Total Cells Counted 100
[2021-09-19 05:27] LABS: Macrocytosis Slight; Platelet Estimate Adequate
[2021-09-19 05:30] LABS: Calcium 8.5 MG/DL (8.5-10.1); Osmolality,Calculated 293.7 MOS/KG (273-304); Potassium 5.7 MMOL/L (3.5-5.1)
[2021-09-19] MEDS: INSULIN LISPRO 100 UNIT/ML SUBCUT SCH ×4 (05:44→23:51)
[2021-09-19 05:53] LABS: ABG Base Excess 2.1 MMOL/L (-2.5-2.5); ABG HCO3 26.3 MMOL/L (20-26); ABG Oxygen Saturation 98.1 % (95-100); ABG PCO2 57.6 MM HG (35-48); ABG PH 7.319 (7.35-7.45); ABG PO2 94.1 MM HG (80-95); ABG TCO2 26.5 MMOL/L (23-27)
[2021-09-19 06:04] LABS: Bacteria,Urine Occasional /HPF (Few); Hyaline Casts,Urine 7 /LPF (0-3); Mucus,Urine Occasional /LPF (Occasional); RBC,Urine 1 /HPF (0-4); Squamous Epithelial Cell,Urine Occasional /HPF (0-10)
[2021-09-19] MEDS: fentaNYL INJ 1,250 MCG in SODIUM CHLORIDE 0.9% 225 ML IV PRN ×4 (06:04→21:13)
[2021-09-19] MEDS: MIDAZOLAM 100 MG in SODIUM CHLORIDE 0.9% 80 ML IV PRN ×2 (06:04→18:45)
[2021-09-19 06:05] LABS: Bilirubin,Urine Negative (Negative); Blood, Urine Negative (Negative); Glucose,Urine (UA) 100 mg/dL (Negative); Ketones,Urine Negative (Negative); Nitrite,Urine Negative (Negative); Protein,Urine 100 mg/dL (Negative); Urine Appearance Clear (Clear); Urine Color Yellow (Yellow); Urine Specific Gravity 1.025 (1.001-1.035); Urine Urobilinogen 0.2 eU/dL (<2.0); Urine pH 5.5 (4.5-8.0)
[2021-09-19] MEDS: SODIUM ZIRCONIUM CYCLOSILICATE 10 GM PACK PO SCH ×3 (06:11→20:39)
[2021-09-19] MEDS: methylPREDNISolone SOD SUC 40 MG/1 ML VIAL IV SCH ×2 (08:04→20:39)
[2021-09-19] MEDS: GABAPENTIN 400 MG CAPSULE PO SCH ×2 (08:04→20:39)
[2021-09-19] MEDS: NICOTINE 14 MG/24 HR PATCH TRANSDERM SCH (08:04)
[2021-09-19] MEDS: allopurinoL 300 MG TABLET PO SCH (08:05)
[2021-09-19] MEDS ORDERED: SODIUM ZIRCONIUM CYCLOSILICATE 10 GM PACK PO SCH (09:00)
[2021-09-19] MEDS ORDERED: ENOXAPARIN 30 MG/0.3 ML SYRINGE SUBCUT SCH (09:00)
[2021-09-19] MEDS: SODIUM CHLORIDE 0.45% 1,000 ML IV SCH (10:00)
[2021-09-19] MEDS: cefTRIAXone 1,000 MG in SODIUM CHLORIDE 0.9% 100 ML IV SCH (10:10)
[2021-09-19] MEDS ORDERED: ENOXAPARIN 60 MG/0.6 ML SYRINGE SUBCUT ONE (10:32)
[2021-09-19 13:25] LABS: Arterial Base Excess iSTAT 4 MMOL/L (-2.5-2.5); Arterial Bicarbonate iSTAT 24.9 MMOL/L (20-26); Arterial O2 Saturation iSTAT 96 % (95-100); Arterial PCO2 iSTAT 28 MM HG (35-48); Arterial PO2 iSTAT 68 MM HG (80-95); Arterial Total CO2 iSTAT 26 MMO/L (23-27); Arterial pH iSTAT 7.565 (7.35-7.45)
[2021-09-20] MEDS: ALBUTEROL/IPRATROPIUM 3 ML NEB RESP TX SCH ×5 (00:15→23:30)
[2021-09-20] MEDS: fentaNYL INJ 1,250 MCG in SODIUM CHLORIDE 0.9% 225 ML IV PRN ×4 (01:57→21:19)
[2021-09-20] MEDS: SODIUM CHLORIDE 0.45% 1,000 ML IV SCH ×3 (03:40→18:01)
[2021-09-20 03:59] LABS: ABG Base Excess 2.6 MMOL/L (-2.5-2.5); ABG HCO3 26.8 MMOL/L (20-26); ABG Oxygen Saturation 99.5 % (95-100); ABG PCO2 27.2 MM HG (35-48); ABG PH 7.555 (7.35-7.45); ABG TCO2 21.5 MMOL/L (23-27)
[2021-09-20 04:19] LABS: Hematocrit 33.1 VOL% (42.0-52.0); Hemoglobin 10.6 GM/DL (14.0-18.0); Immature Granulocytes % 1.6 %; Immature Granulocytes Absolute 0.09 #; Lymphocytes # 0.2 10*3/uL (1.4-4.0); Lymphocytes % 3.3 % (21.2-54.2); Mean Corpuscular Volume 96.5 FL (87-102); Mean Platelet Volume 11.3 FL (9.6-12.0); Monocytes # 0.2 10*3/uL (0.11-0.8); Monocytes % 4.4 % (1.7-12.7); Neutrophils % 90.7 % (38.7-73.9); Platelet Count 155 T/CUMM (130-400); Red Blood Count 3.43 MC/CUMM (3.8-5.5); Red Cell Distribution Width 14.4 % (9.3-17.3); White Blood Count 5.5 T/CUMM (4-12)
[2021-09-20 04:37] LABS: Calcium 7.8 MG/DL (8.5-10.1); Osmolality,Calculated 305.3 MOS/KG (273-304); Potassium 3.5 MMOL/L (3.5-5.1)
[2021-09-20 04:39] LABS: Lymphocytes 5 % (20-55); Platelet Estimate Decreased; Total Cells Counted 100
[2021-09-20] MEDS: INSULIN LISPRO 100 UNIT/ML SUBCUT SCH ×3 (06:27→18:01)
[2021-09-20] MEDS: SODIUM ZIRCONIUM CYCLOSILICATE 10 GM PACK PO SCH ×3 (08:18→21:15)
[2021-09-20] MEDS: allopurinoL 300 MG TABLET PO SCH (08:19)
[2021-09-20] MEDS: NICOTINE 14 MG/24 HR PATCH TRANSDERM SCH (08:19)
[2021-09-20] MEDS: methylPREDNISolone SOD SUC 40 MG/1 ML VIAL IV SCH ×2 (08:19→21:16)
[2021-09-20] MEDS: GABAPENTIN 400 MG CAPSULE PO SCH ×2 (08:19→21:15)
[2021-09-20] MEDS ORDERED: ENOXAPARIN 100 MG/ML SYRINGE SUBCUT SCH (09:00)
[2021-09-20] MEDS: cefTRIAXone 1,000 MG in SODIUM CHLORIDE 0.9% 100 ML IV SCH (09:00)
[2021-09-20 09:40] LABS: Arterial Base Excess iSTAT 3 MMOL/L (-2.5-2.5); Arterial Bicarbonate iSTAT 25.3 MMOL/L (20-26); Arterial O2 Saturation iSTAT 99 % (95-100); Arterial PCO2 iSTAT 29 MM HG (35-48); Arterial PO2 iSTAT 103 MM HG (80-95); Arterial Total CO2 iSTAT 26 MMO/L (23-27); Arterial pH iSTAT 7.551 (7.35-7.45)
[2021-09-20] MEDS: MIDAZOLAM 100 MG in SODIUM CHLORIDE 0.9% 80 ML IV PRN (10:50)
[2021-09-20 11:40] LABS: Arterial Base Excess iSTAT 3 MMOL/L (-2.5-2.5); Arterial Bicarbonate iSTAT 26.2 MMOL/L (20-26); Arterial O2 Saturation iSTAT 99 % (95-100); Arterial PCO2 iSTAT 33 MM HG (35-48); Arterial PO2 iSTAT 112 MM HG (80-95); Arterial Total CO2 iSTAT 27 MMO/L (23-27)
[2021-09-21] MEDS: INSULIN LISPRO 100 UNIT/ML SUBCUT SCH ×5 (00:06→23:42)
[2021-09-21 04:16] LABS: ABG Base Excess 2.7 MMOL/L (-2.5-2.5); ABG HCO3 26.8 MMOL/L (20-26); ABG Oxygen Saturation 98.5 % (95-100); ABG TCO2 23.3 MMOL/L (23-27)
[2021-09-21] MEDS: SODIUM CHLORIDE 0.45% 1,000 ML IV SCH ×2 (06:53→20:35)
[2021-09-21] MEDS: ALBUTEROL/IPRATROPIUM 3 ML NEB RESP TX SCH ×3 (07:08→18:56)
[2021-09-21] MEDS: GABAPENTIN 400 MG CAPSULE PO SCH ×2 (08:53→20:34)
[2021-09-21] MEDS: NICOTINE 14 MG/24 HR PATCH TRANSDERM SCH (08:53)
[2021-09-21] MEDS: SODIUM ZIRCONIUM CYCLOSILICATE 10 GM PACK PO SCH ×3 (08:53→20:34)
[2021-09-21] MEDS: ENOXAPARIN 40 MG/0.4 ML SYRINGE SUBCUT SCH (08:53)
[2021-09-21] MEDS: allopurinoL 300 MG TABLET PO SCH (08:54)
[2021-09-21] MEDS: methylPREDNISolone SOD SUC 40 MG/1 ML VIAL IV SCH ×2 (08:54→20:34)
[2021-09-21] MEDS: hydrALAZINE 20 MG/1 ML VIAL IV PRN (08:54)
[2021-09-21] MEDS: cefTRIAXone 1,000 MG in SODIUM CHLORIDE 0.9% 100 ML IV SCH (09:33)
[2021-09-21 09:57] LABS: Basophils % 0.1 % (0.0-0.8); Hematocrit 35.5 VOL% (42.0-52.0); Hemoglobin 11.4 GM/DL (14.0-18.0); Immature Granulocytes % 0.7 %; Immature Granulocytes Absolute 0.07 #; Lymphocytes # 0.2 10*3/uL (1.4-4.0); Lymphocytes % 1.9 % (21.2-54.2); Mean Corpuscular HGB Conc 32.1 GM/DL (32-36); Mean Corpuscular Volume 94.9 FL (87-102); Mean Platelet Volume 11.1 FL (9.6-12.0); Monocytes # 0.3 10*3/uL (0.11-0.8); Monocytes % 2.9 % (1.7-12.7); Neutrophils % 94.4 % (38.7-73.9); Platelet Count 142 T/CUMM (130-400); Red Blood Count 3.74 MC/CUMM (3.8-5.5); Red Cell Distribution Width 15.3 % (9.3-17.3); White Blood Count 9.4 T/CUMM (4-12)
[2021-09-21 10:10] LABS: Albumin 2.1 G/DL (3.4-5.0); Bilirubin,Total 0.7 MG/DL (0.20-1.00); Calcium 7.9 MG/DL (8.5-10.1); Osmolality,Calculated 301.4 MOS/KG (273-304); Potassium 3.8 MMOL/L (3.5-5.1); Total Protein 4.5 G/DL (6.4-8.2)
[2021-09-21 10:30] LABS: Anisocytosis 1+; Burr Cells Few; Lymphocytes 1 % (20-55); Macrocytosis 1+; Ovalocytes Few; Platelet Estimate Adequate; Tear Drop Cells Few; Total Cells Counted 100
[2021-09-21] MEDS: fentaNYL INJ 1,250 MCG in SODIUM CHLORIDE 0.9% 225 ML IV PRN (11:28)
[2021-09-21] MEDS: MIDAZOLAM 100 MG in SODIUM CHLORIDE 0.9% 80 ML IV PRN (11:58)
[2021-09-22] MEDS: ALBUTEROL/IPRATROPIUM 3 ML NEB RESP TX SCH ×4 (00:08→19:58)
[2021-09-22 03:41] LABS: Arterial Base Excess iSTAT 0 MMOL/L (-2.5-2.5); Arterial Bicarbonate iSTAT 24.7 MMOL/L (20-26); Arterial O2 Saturation iSTAT 98 % (95-100); Arterial PCO2 iSTAT 38 MM HG (35-48); Arterial PO2 iSTAT 105 MM HG (80-95); Arterial Total CO2 iSTAT 26 MMO/L (23-27); Arterial pH iSTAT 7.425 (7.35-7.45)
[2021-09-22 04:21] LABS: Basophils % 0.1 % (0.0-0.8); Hematocrit 36.3 VOL% (42.0-52.0); Hemoglobin 11.4 GM/DL (14.0-18.0); Immature Granulocytes % 0.7 %; Immature Granulocytes Absolute 0.09 #; Lymphocytes # 0.2 10*3/uL (1.4-4.0); Lymphocytes % 1.8 % (21.2-54.2); Mean Corpuscular HGB Conc 31.4 GM/DL (32-36); Mean Corpuscular Volume 96.5 FL (87-102); Mean Platelet Volume 11.5 FL (9.6-12.0); Monocytes # 0.3 10*3/uL (0.11-0.8); Monocytes % 2.1 % (1.7-12.7); Neutrophils % 95.3 % (38.7-73.9); Platelet Count 135 T/CUMM (130-400); Red Blood Count 3.76 MC/CUMM (3.8-5.5); Red Cell Distribution Width 15.7 % (9.3-17.3); White Blood Count 12.8 T/CUMM (4-12)
[2021-09-22 04:38] LABS: Calcium 7.5 MG/DL (8.5-10.1); Osmolality,Calculated 303.3 MOS/KG (273-304); Potassium 3.8 MMOL/L (3.5-5.1)
[2021-09-22 04:41] LABS: Lymphocytes 1 % (20-55); Platelet Estimate Adequate; Total Cells Counted 100
[2021-09-22] MEDS: INSULIN LISPRO 100 UNIT/ML SUBCUT SCH ×4 (06:08→23:53)
[2021-09-22] MEDS: SODIUM ZIRCONIUM CYCLOSILICATE 10 GM PACK PO SCH ×3 (08:28→20:40)
[2021-09-22] MEDS: methylPREDNISolone SOD SUC 40 MG/1 ML VIAL IV SCH ×2 (08:29→20:40)
[2021-09-22] MEDS: NICOTINE 14 MG/24 HR PATCH TRANSDERM SCH (08:29)
[2021-09-22] MEDS: GABAPENTIN 400 MG CAPSULE PO SCH ×2 (08:30→20:40)
[2021-09-22] MEDS: ENOXAPARIN 40 MG/0.4 ML SYRINGE SUBCUT SCH (08:30)
[2021-09-22] MEDS: allopurinoL 300 MG TABLET PO SCH (08:30)
[2021-09-22] MEDS: fentaNYL INJ 1,250 MCG in SODIUM CHLORIDE 0.9% 225 ML IV PRN (10:52)
[2021-09-22] MEDS: SODIUM CHLORIDE 0.45% 1,000 ML IV SCH (10:54)
[2021-09-22] MEDS: hydrALAZINE 20 MG/1 ML VIAL IV PRN (18:03)
[2021-09-22] MEDS: MIDAZOLAM 100 MG in SODIUM CHLORIDE 0.9% 80 ML IV PRN (19:40)
[2021-09-23] MEDS: SODIUM CHLORIDE 0.45% 1,000 ML IV SCH ×2 (00:41→14:01)
[2021-09-23] MEDS: ALBUTEROL/IPRATROPIUM 3 ML NEB RESP TX SCH ×4 (00:47→19:13)
[2021-09-23 03:47] LABS: Basophils % 0.1 % (0.0-0.8); Hemoglobin 12.2 GM/DL (14.0-18.0); Immature Granulocytes % 1.3 %; Lymphocytes # 0.2 10*3/uL (1.4-4.0); Lymphocytes % 1.5 % (21.2-54.2); Mean Corpuscular HGB Conc 32.1 GM/DL (32-36); Mean Corpuscular Volume 95.5 FL (87-102); Mean Platelet Volume 11.7 FL (9.6-12.0); Monocytes # 0.4 10*3/uL (0.11-0.8); Monocytes % 2.5 % (1.7-12.7); Neutrophils % 94.6 % (38.7-73.9); Platelet Count 138 T/CUMM (130-400); Red Blood Count 3.98 MC/CUMM (3.8-5.5); Red Cell Distribution Width 15.6 % (9.3-17.3); White Blood Count 15.3 T/CUMM (4-12)
[2021-09-23 04:06] LABS: Lymphocytes 2 % (20-55); Total Cells Counted 100
[2021-09-23 04:08] LABS: Calcium 7.8 MG/DL (8.5-10.1); Osmolality,Calculated 306.5 MOS/KG (273-304); Potassium 3.7 MMOL/L (3.5-5.1)
[2021-09-23] MEDS: INSULIN LISPRO 100 UNIT/ML SUBCUT SCH ×4 (05:32→23:56)
[2021-09-23] MEDS: hydrALAZINE 20 MG/1 ML VIAL IV PRN ×2 (06:07→14:13)
[2021-09-23] MEDS: ENOXAPARIN 40 MG/0.4 ML SYRINGE SUBCUT SCH (08:35)
[2021-09-23] MEDS: SODIUM ZIRCONIUM CYCLOSILICATE 10 GM PACK PO SCH ×3 (08:35→20:49)
[2021-09-23] MEDS: NICOTINE 14 MG/24 HR PATCH TRANSDERM SCH (08:35)
[2021-09-23] MEDS: allopurinoL 300 MG TABLET PO SCH (08:36)
[2021-09-23] MEDS: methylPREDNISolone SOD SUC 40 MG/1 ML VIAL IV SCH ×2 (08:36→20:49)
[2021-09-23] MEDS: GABAPENTIN 400 MG CAPSULE PO SCH ×2 (08:36→20:49)
[2021-09-23] MEDS ORDERED: ALPRAZolam 0.25 MG TABLET PO ONE (09:15)
[2021-09-23 10:21] LABS: Arterial Base Excess iSTAT -1 MMOL/L (-2.5-2.5); Arterial Bicarbonate iSTAT 26.4 MMOL/L (20-26); Arterial O2 Saturation iSTAT 96 % (95-100); Arterial PCO2 iSTAT 56 MM HG (35-48); Arterial PO2 iSTAT 96 MM HG (80-95); Arterial Total CO2 iSTAT 28 MMO/L (23-27); Arterial pH iSTAT 7.283 (7.35-7.45)
[2021-09-24] MEDS: hydrALAZINE 20 MG/1 ML VIAL IV PRN ×3 (00:02→22:15)
[2021-09-24] MEDS: ALBUTEROL/IPRATROPIUM 3 ML NEB RESP TX SCH ×4 (00:07→19:10)
[2021-09-24] MEDS: SODIUM CHLORIDE 0.45% 1,000 ML IV SCH ×3 (03:41→22:57)
[2021-09-24 04:25] LABS: Basophils % 0.2 % (0.0-0.8); Eosinophils % 0.2 % (0.00-10.9); Hematocrit 40.1 VOL% (42.0-52.0); Hemoglobin 12.7 GM/DL (14.0-18.0); Immature Granulocytes % 2.9 %; Immature Granulocytes Absolute 0.51 #; Lymphocytes # 0.3 10*3/uL (1.4-4.0); Lymphocytes % 1.7 % (21.2-54.2); Mean Corpuscular HGB Conc 31.7 GM/DL (32-36); Mean Corpuscular Volume 97.1 FL (87-102); Mean Platelet Volume 11.5 FL (9.6-12.0); Monocytes # 0.5 10*3/uL (0.11-0.8); Monocytes % 2.8 % (1.7-12.7); Neutrophils % 92.2 % (38.7-73.9); Platelet Count 149 T/CUMM (130-400); Red Blood Count 4.13 MC/CUMM (3.8-5.5); Red Cell Distribution Width 15.9 % (9.3-17.3); White Blood Count 17.3 T/CUMM (4-12)
[2021-09-24 04:34] LABS: ABG Base Excess -0.2 MMOL/L (-2.5-2.5); ABG HCO3 24.2 MMOL/L (20-26); ABG Oxygen Saturation 94.2 % (95-100); ABG PCO2 45.6 MM HG (35-48); ABG PH 7.358 (7.35-7.45); ABG TCO2 22.6 MMOL/L (23-27)
[2021-09-24 04:40] LABS: Albumin 2.5 G/DL (3.4-5.0); Calcium 7.7 MG/DL (8.5-10.1); Osmolality,Calculated 299.8 MOS/KG (273-304); Phosphorous 4.8 MG/DL (2.5-4.9); Potassium 3.9 MMOL/L (3.5-5.1); Total Protein 5.2 G/DL (6.4-8.2)
[2021-09-24 04:45] LABS: Lymphocytes 2 % (20-55); Platelet Estimate Adequate; Total Cells Counted 100
[2021-09-24] MEDS: INSULIN LISPRO 100 UNIT/ML SUBCUT SCH ×3 (06:20→18:32)
[2021-09-24] MEDS: SODIUM ZIRCONIUM CYCLOSILICATE 10 GM PACK PO SCH ×3 (08:03→21:20)
[2021-09-24] MEDS: GABAPENTIN 400 MG CAPSULE PO SCH ×2 (08:03→21:19)
[2021-09-24] MEDS: ENOXAPARIN 40 MG/0.4 ML SYRINGE SUBCUT SCH (08:03)
[2021-09-24] MEDS: allopurinoL 300 MG TABLET PO SCH (08:04)
[2021-09-24] MEDS: methylPREDNISolone SOD SUC 40 MG/1 ML VIAL IV SCH ×2 (08:04→21:19)
[2021-09-24] MEDS: NICOTINE 14 MG/24 HR PATCH TRANSDERM SCH (08:04)
[2021-09-24] MEDS: PANTOPRAZOLE 40 MG VIAL IV SCH (21:19)
[2021-09-25] MEDS: ALBUTEROL/IPRATROPIUM 3 ML NEB RESP TX SCH ×4 (00:15→19:20)
[2021-09-25 04:39] LABS: ABG Base Excess -2.7 MMOL/L (-2.5-2.5); ABG HCO3 22.1 MMOL/L (20-26); ABG Oxygen Saturation 94.6 % (95-100); ABG PCO2 38.1 MM HG (35-48); ABG PH 7.373 (7.35-7.45); ABG PO2 75.7 MM HG (80-95); ABG TCO2 19.5 MMOL/L (23-27)
[2021-09-25] MEDS: SODIUM CHLORIDE 0.45% 1,000 ML IV SCH ×2 (05:03→14:52)
[2021-09-25 05:05] LABS: Basophils % 0.1 % (0.0-0.8); Hematocrit 39.3 VOL% (42.0-52.0); Hemoglobin 12.7 GM/DL (14.0-18.0); Immature Granulocytes Absolute 0.17 #; Lymphocytes # 0.2 10*3/uL (1.4-4.0); Lymphocytes % 1.4 % (21.2-54.2); Mean Corpuscular HGB Conc 32.3 GM/DL (32-36); Mean Corpuscular Volume 95.9 FL (87-102); Mean Platelet Volume 11.2 FL (9.6-12.0); Monocytes # 0.5 10*3/uL (0.11-0.8); Monocytes % 2.7 % (1.7-12.7); Neutrophils % 94.8 % (38.7-73.9); Platelet Count 129 T/CUMM (130-400); Red Cell Distribution Width 15.9 % (9.3-17.3); White Blood Count 17.2 T/CUMM (4-12)
[2021-09-25 05:24] LABS: Total Cells Counted 100
[2021-09-25 05:26] LABS: Calcium 7.4 MG/DL (8.5-10.1); Osmolality,Calculated 305.7 MOS/KG (273-304); Potassium 3.6 MMOL/L (3.5-5.1)
[2021-09-25] MEDS: INSULIN LISPRO 100 UNIT/ML SUBCUT SCH ×4 (05:38→18:53)
[2021-09-25] MEDS: hydrALAZINE 20 MG/1 ML VIAL IV PRN ×2 (06:40→12:01)
[2021-09-25] MEDS: PANTOPRAZOLE 40 MG VIAL IV SCH (08:35)
[2021-09-25] MEDS: SODIUM ZIRCONIUM CYCLOSILICATE 10 GM PACK PO SCH ×3 (08:35→20:03)
[2021-09-25] MEDS: ENOXAPARIN 40 MG/0.4 ML SYRINGE SUBCUT SCH (08:35)
[2021-09-25] MEDS: GABAPENTIN 400 MG CAPSULE PO SCH ×2 (08:35→20:02)
[2021-09-25] MEDS: NICOTINE 14 MG/24 HR PATCH TRANSDERM SCH (08:35)
[2021-09-25] MEDS: allopurinoL 300 MG TABLET PO SCH (08:36)
[2021-09-25] MEDS: methylPREDNISolone SOD SUC 40 MG/1 ML VIAL IV SCH ×2 (09:57→20:02)
[2021-09-25] MEDS: PANTOPRAZOLE 40 MG TABLET PO SCH (20:02)
[2021-09-26] MEDS: INSULIN LISPRO 100 UNIT/ML SUBCUT SCH ×4 (00:33→18:26)
[2021-09-26] MEDS: SODIUM CHLORIDE 0.45% 1,000 ML IV SCH ×2 (02:40→05:52)
[2021-09-26 04:45] LABS: Basophils % 0.1 % (0.0-0.8); Hematocrit 36.2 VOL% (42.0-52.0); Hemoglobin 11.9 GM/DL (14.0-18.0); Immature Granulocytes % 0.8 %; Immature Granulocytes Absolute 0.14 #; Lymphocytes # 0.2 10*3/uL (1.4-4.0); Lymphocytes % 0.9 % (21.2-54.2); Mean Corpuscular HGB Conc 32.9 GM/DL (32-36); Mean Platelet Volume 11.6 FL (9.6-12.0); Monocytes # 0.6 10*3/uL (0.11-0.8); Monocytes % 3.4 % (1.7-12.7); Neutrophils % 94.8 % (38.7-73.9); Platelet Count 136 T/CUMM (130-400); Red Blood Count 3.81 MC/CUMM (3.8-5.5); Red Cell Distribution Width 15.7 % (9.3-17.3); White Blood Count 17.8 T/CUMM (4-12)
[2021-09-26 05:01] LABS: Calcium 7.6 MG/DL (8.5-10.1); Osmolality,Calculated 309.5 MOS/KG (273-304); Potassium 3.3 MMOL/L (3.5-5.1)
[2021-09-26 05:06] LABS: Lymphocytes 2 % (20-55); Total Cells Counted 100
[2021-09-26 05:07] LABS: Platelet Estimate Adequate
[2021-09-26] MEDS: ALBUTEROL/IPRATROPIUM 3 ML NEB RESP TX SCH ×4 (07:22→19:10)
[2021-09-26] MEDS: SODIUM ZIRCONIUM CYCLOSILICATE 10 GM PACK PO SCH (08:37)
[2021-09-26] MEDS: PANTOPRAZOLE 40 MG TABLET PO SCH ×2 (08:40→20:38)
[2021-09-26] MEDS: allopurinoL 300 MG TABLET PO SCH (08:40)
[2021-09-26] MEDS: GABAPENTIN 400 MG CAPSULE PO SCH ×2 (08:40→20:38)
[2021-09-26] MEDS: ENOXAPARIN 40 MG/0.4 ML SYRINGE SUBCUT SCH (08:40)
[2021-09-26] MEDS: methylPREDNISolone SOD SUC 40 MG/1 ML VIAL IV SCH ×2 (08:43→20:38)
[2021-09-26] MEDS: NICOTINE 14 MG/24 HR PATCH TRANSDERM SCH (08:43)
[2021-09-26] MEDS ORDERED: PANTOPRAZOLE 40 MG TABLET PO SCH (09:00)
[2021-09-26] MEDS: POTASSIUM CHLORIDE 10 MEQ TABLET PO SCH ×2 (12:30→20:38)
[2021-09-26 21:15] LABS: ABG Base Excess 0.6 MMOL/L (-2.5-2.5); ABG HCO3 24.8 MMOL/L (20-26); ABG Oxygen Saturation 88.9 % (95-100); ABG PCO2 35.9 MM HG (35-48); ABG PH 7.439 (7.35-7.45); ABG PO2 56.7 MM HG (80-95); ABG TCO2 21.6 MMOL/L (23-27)
[2021-09-26] MEDS ORDERED: FUROSEMIDE 40 MG/4 ML VIAL IV ONE (21:53)
[2021-09-27] MEDS: INSULIN LISPRO 100 UNIT/ML SUBCUT SCH ×4 (00:23→18:34)
[2021-09-27] MEDS: ALBUTEROL/IPRATROPIUM 3 ML NEB RESP TX SCH ×4 (01:10→18:34)
[2021-09-27 05:04] LABS: Basophils % 0.1 % (0.0-0.8); Hematocrit 35.7 VOL% (42.0-52.0); Hemoglobin 11.7 GM/DL (14.0-18.0); Immature Granulocytes % 0.9 %; Immature Granulocytes Absolute 0.17 #; Lymphocytes # 0.2 10*3/uL (1.4-4.0); Lymphocytes % 0.8 % (21.2-54.2); Mean Corpuscular HGB Conc 32.8 GM/DL (32-36); Mean Corpuscular Volume 94.4 FL (87-102); Mean Platelet Volume 11.8 FL (9.6-12.0); Monocytes # 0.6 10*3/uL (0.11-0.8); Monocytes % 3.2 % (1.7-12.7); Platelet Count 122 T/CUMM (130-400); Red Blood Count 3.78 MC/CUMM (3.8-5.5); Red Cell Distribution Width 15.5 % (9.3-17.3); White Blood Count 18.9 T/CUMM (4-12)
[2021-09-27 05:21] LABS: Calcium 7.2 MG/DL (8.5-10.1); Osmolality,Calculated 310.4 MOS/KG (273-304); Potassium 3.6 MMOL/L (3.5-5.1)
[2021-09-27 05:32] LABS: Lymphocytes 1 % (20-55); Total Cells Counted 100
[2021-09-27 05:33] LABS: Microcytosis Slight; Ovalocytes Slight; Platelet Estimate Adequate
[2021-09-27] MEDS: methylPREDNISolone SOD SUC 40 MG/1 ML VIAL IV SCH ×2 (09:12→20:07)
[2021-09-27] MEDS: allopurinoL 300 MG TABLET PO SCH (09:13)
[2021-09-27] MEDS: GABAPENTIN 400 MG CAPSULE PO SCH ×2 (09:13→20:06)
[2021-09-27] MEDS: ENOXAPARIN 40 MG/0.4 ML SYRINGE SUBCUT SCH ×2 (09:13→20:07)
[2021-09-27] MEDS: PANTOPRAZOLE 40 MG TABLET PO SCH ×2 (09:13→20:07)
[2021-09-27] MEDS: NICOTINE 14 MG/24 HR PATCH TRANSDERM SCH (09:14)
[2021-09-27] MEDS ORDERED: ALBUTEROL/IPRATROPIUM 3 ML NEB RESP TX PRN (11:33)
[2021-09-27 11:52] LABS: Arterial Base Excess iSTAT 0 MMOL/L (-2.5-2.5); Arterial Bicarbonate iSTAT 25.6 MMOL/L (20-26); Arterial O2 Saturation iSTAT 84 % (95-100); Arterial PCO2 iSTAT 47 MM HG (35-48); Arterial PO2 iSTAT 52 MM HG (80-95); Arterial Total CO2 iSTAT 27 MMO/L (23-27); Arterial pH iSTAT 7.346 (7.35-7.45)
[2021-09-27] MEDS ORDERED: FUROSEMIDE 40 MG/4 ML VIAL IV ONE ×2 (12:00→16:00)
[2021-09-27] MEDS ORDERED: cefTRIAXone 1,000 MG in SODIUM CHLORIDE 0.9% 100 ML IV ONE (12:00)
[2021-09-27] MEDS ORDERED: AZITHROMYCIN INJ 500 MG in SODIUM CHLORIDE 0.9% 250 ML IV ONE (12:00)
[2021-09-28] MEDS: ALPRAZolam 0.25 MG TABLET PO PRN ×2 (00:01→16:14)
[2021-09-28] MEDS: INSULIN LISPRO 100 UNIT/ML SUBCUT SCH ×5 (00:01→22:39)
[2021-09-28] MEDS: ALBUTEROL/IPRATROPIUM 3 ML NEB RESP TX SCH ×4 (00:19→19:38)
[2021-09-28 04:01] LABS: Arterial Base Excess iSTAT 1 MMOL/L (-2.5-2.5); Arterial Bicarbonate iSTAT 25.8 MMOL/L (20-26); Arterial O2 Saturation iSTAT 96 % (95-100); Arterial PCO2 iSTAT 40 MM HG (35-48); Arterial PO2 iSTAT 79 MM HG (80-95); Arterial Total CO2 iSTAT 27 MMO/L (23-27); Arterial pH iSTAT 7.414 (7.35-7.45)
[2021-09-28 04:33] LABS: Basophils % 0.1 % (0.0-0.8); Hematocrit 37.6 VOL% (42.0-52.0); Immature Granulocytes % 0.6 %; Immature Granulocytes Absolute 0.11 #; Lymphocytes # 0.1 10*3/uL (1.4-4.0); Lymphocytes % 0.6 % (21.2-54.2); Mean Corpuscular HGB Conc 31.9 GM/DL (32-36); Mean Corpuscular Volume 95.9 FL (87-102); Mean Platelet Volume 12.4 FL (9.6-12.0); Monocytes # 0.3 10*3/uL (0.11-0.8); Monocytes % 1.6 % (1.7-12.7); Neutrophils % 97.1 % (38.7-73.9); Platelet Count 109 T/CUMM (130-400); Red Blood Count 3.92 MC/CUMM (3.8-5.5); Red Cell Distribution Width 15.6 % (9.3-17.3)
[2021-09-28 04:48] LABS: Calcium 7.6 MG/DL (8.5-10.1); Potassium 3.4 MMOL/L (3.5-5.1)
[2021-09-28 05:21] LABS: Lymphocytes 3 % (20-55); Total Cells Counted 100
[2021-09-28 05:22] LABS: Microcytosis Slight; Platelet Estimate Decreased
[2021-09-28] MEDS ORDERED: FUROSEMIDE 40 MG/4 ML VIAL IV ONE (08:27)
[2021-09-28] MEDS: GABAPENTIN 400 MG CAPSULE PO SCH ×2 (08:36→21:48)
[2021-09-28] MEDS: PANTOPRAZOLE 40 MG TABLET PO SCH ×2 (08:36→21:48)
[2021-09-28] MEDS: ENOXAPARIN 40 MG/0.4 ML SYRINGE SUBCUT SCH ×2 (08:38→21:48)
[2021-09-28] MEDS: NICOTINE 14 MG/24 HR PATCH TRANSDERM SCH (08:38)
[2021-09-28] MEDS: methylPREDNISolone SOD SUC 40 MG/1 ML VIAL IV SCH ×2 (08:39→21:48)
[2021-09-28] MEDS: allopurinoL 300 MG TABLET PO SCH (08:41)
[2021-09-29] MEDS: ALPRAZolam 0.25 MG TABLET PO PRN ×3 (03:29→17:34)
[2021-09-29 05:23] LABS: Basophils % 0.1 % (0.0-0.8); Hematocrit 35.1 VOL% (42.0-52.0); Hemoglobin 11.3 GM/DL (14.0-18.0); Immature Granulocytes % 0.7 %; Immature Granulocytes Absolute 0.12 #; Lymphocytes # 0.1 10*3/uL (1.4-4.0); Lymphocytes % 0.8 % (21.2-54.2); Mean Corpuscular HGB Conc 32.2 GM/DL (32-36); Mean Corpuscular Volume 96.7 FL (87-102); Mean Platelet Volume 12.9 FL (9.6-12.0); Monocytes # 0.4 10*3/uL (0.11-0.8); Monocytes % 2.5 % (1.7-12.7); Neutrophils % 95.9 % (38.7-73.9); Platelet Count 101 T/CUMM (130-400); Red Blood Count 3.63 MC/CUMM (3.8-5.5); Red Cell Distribution Width 15.3 % (9.3-17.3); White Blood Count 16.7 T/CUMM (4-12)
[2021-09-29 05:46] LABS: Calcium 7.8 MG/DL (8.5-10.1); Osmolality,Calculated 325.7 MOS/KG (273-304); Potassium 3.7 MMOL/L (3.5-5.1)
[2021-09-29 05:47] LABS: Lymphocytes 1 % (20-55); Total Cells Counted 100
[2021-09-29] MEDS: ALBUTEROL/IPRATROPIUM 3 ML NEB RESP TX SCH ×4 (07:41→19:25)
[2021-09-29] MEDS: ENOXAPARIN 40 MG/0.4 ML SYRINGE SUBCUT SCH ×2 (09:20→23:12)
[2021-09-29] MEDS: PANTOPRAZOLE 40 MG TABLET PO SCH ×2 (09:20→23:22)
[2021-09-29] MEDS: methylPREDNISolone SOD SUC 40 MG/1 ML VIAL IV SCH ×2 (09:21→23:17)
[2021-09-29] MEDS: GABAPENTIN 400 MG CAPSULE PO SCH ×2 (09:21→23:22)
[2021-09-29] MEDS: allopurinoL 300 MG TABLET PO SCH (09:21)
[2021-09-29] MEDS: INSULIN LISPRO 100 UNIT/ML SUBCUT SCH ×4 (09:22→23:18)
[2021-09-29] MEDS: NICOTINE 14 MG/24 HR PATCH TRANSDERM SCH (09:22)
[2021-09-29] MEDS: ACETAMINOPHEN 325 MG TABLET PO PRN (11:39)
[2021-09-29] MEDS ORDERED: FUROSEMIDE 40 MG/4 ML VIAL IV ONE (13:56)
[2021-09-29] MEDS: PIPERACILLIN/TAZOBACTAM 3,375 MG in SODIUM CHLORIDE 0.9% 100 ML IV SCH ×2 (14:45→23:17)
[2021-09-29] MEDS: INSULIN GLARGINE 100 UNIT/ML SUBCUT SCH (14:45)
[2021-09-30] MEDS: ALPRAZolam 0.25 MG TABLET PO PRN (04:04)
[2021-09-30 05:33] LABS: Calcium 7.9 MG/DL (8.5-10.1); Potassium 4.3 MMOL/L (3.5-5.1)
[2021-09-30] MEDS: PIPERACILLIN/TAZOBACTAM 3,375 MG in SODIUM CHLORIDE 0.9% 100 ML IV SCH (07:26)
[2021-09-30] MEDS: INSULIN LISPRO 100 UNIT/ML SUBCUT SCH ×4 (08:25→21:23)
[2021-09-30] MEDS: methylPREDNISolone SOD SUC 40 MG/1 ML VIAL IV SCH ×2 (08:35→21:21)
[2021-09-30] MEDS: ENOXAPARIN 40 MG/0.4 ML SYRINGE SUBCUT SCH ×2 (09:52→21:22)
[2021-09-30] MEDS: NICOTINE 14 MG/24 HR PATCH TRANSDERM SCH (09:52)
[2021-09-30] MEDS: INSULIN GLARGINE 100 UNIT/ML SUBCUT SCH (09:53)
[2021-09-30] MEDS: PANTOPRAZOLE 40 MG TABLET PO SCH ×2 (09:56→21:22)
[2021-09-30] MEDS: allopurinoL 300 MG TABLET PO SCH (09:56)
[2021-09-30] MEDS: GABAPENTIN 400 MG CAPSULE PO SCH ×2 (09:56→21:22)
[2021-09-30] MEDS: ALBUTEROL/IPRATROPIUM 3 ML NEB RESP TX SCH ×4 (11:53→19:41)
[2021-09-30] MEDS ORDERED: FUROSEMIDE 40 MG/4 ML VIAL IV ONE (12:20)
[2021-10-01] MEDS: ALBUTEROL/IPRATROPIUM 3 ML NEB RESP TX SCH ×3 (01:00→14:29)
[2021-10-01] MEDS: ALPRAZolam 0.25 MG TABLET PO PRN (01:10)
[2021-10-01 06:09] LABS: Calcium 7.5 MG/DL (8.5-10.1); Osmolality,Calculated 321.1 MOS/KG (273-304); Potassium 4.1 MMOL/L (3.5-5.1)
[2021-10-01] MEDS: ENOXAPARIN 40 MG/0.4 ML SYRINGE SUBCUT SCH (08:50)
[2021-10-01] MEDS: PANTOPRAZOLE 40 MG TABLET PO SCH (08:50)
[2021-10-01] MEDS: GABAPENTIN 400 MG CAPSULE PO SCH (08:50)
[2021-10-01] MEDS: methylPREDNISolone SOD SUC 40 MG/1 ML VIAL IV SCH (08:50)
[2021-10-01] MEDS: INSULIN GLARGINE 100 UNIT/ML SUBCUT SCH (08:51)
[2021-10-01] MEDS: INSULIN LISPRO 100 UNIT/ML SUBCUT SCH ×2 (08:51→12:35)
[2021-10-01] MEDS: NICOTINE 14 MG/24 HR PATCH TRANSDERM SCH (08:52)
[2021-10-01] MEDS: allopurinoL 300 MG TABLET PO SCH (10:53)
[2021-10-01 12:20] VITALS: BP 130/44
== END 2021-10-01 16:20 | disposition hospice, home (50) | DRG 207 ==
LOC: N.ED 08:47 → N.EDINP 10:53 → SUATTDRO 10:53 → N.EDINP 14:37 → N.5E 15:08 → N.CC 15:29 → N.3E 09-14 17:28 → N.CC 09-18 22:25 → N.TELEN 09-28 14:35
PROVIDERS: ADMIT Internal Medicine Geriatric Medicine; ATTEND Internal Medicine